=== PATIENT | female | born 1970 | race Caucasian/White ===

== ENCOUNTER 2021-10-26 21:06 | Emergency (ER) | payer BC ==
[2021-10-26 21:53] LABS: HEMOGLOBIN 12.7 gm/dl (12.3-15.3); RED BLOOD COUNT 4.18 M/UL (4.00-5.10); WHITE BLOOD COUNT 11.6 K/UL (4.5-11.0)
[2021-10-27] MEDS ORDERED: ZOFRAN ODT 4 MG4 MG PO (00:42)
[2021-10-27] MEDS ORDERED: OMNICEF 300 MG300 MG PO (00:42)
== END 2021-10-27 00:47 | disposition home or self-care (01) ==
LOC: ER1 21:06
PROVIDERS: Physician Assistant
DX: N39.0 Urinary tract infection, site not specified (principal); Z20.822 Contact with and (suspected) exposure to COVID-19
CPT/HCPCS: 0240U; 71045; 80053; 81001; 83605; 85025; 87040; 93005; 96374; 96375; 99284; J0696; J1200

== ENCOUNTER → 2022-03-18 | Outpatient (CLI) | payer BC ==
[~2022-03-18] MED LIST: OMNICEF 300 MG300 MG PO; ZOFRAN ODT 4 MG4 MG PO
== END ==
LOC: RAD 11:06
DX: M25.552 Pain in left hip (principal)
CPT/HCPCS: 73502